=== PATIENT | female | born 1990 ===

== ENCOUNTER 2020-10-17 16:13 | Emergency (ER) | payer OTHER ==
[~2020-10-17] VITALS: Ht 160 cm; Wt 56.7 kg
[~2020-10-17 16:13] MED LIST: MOTRIN800 MG PO
[2020-10-17] MEDS ORDERED: TUSNEL LIQUID178 ML PO (18:31)
[2020-10-17] MEDS ORDERED: MEDROLPACK PO (18:31)
== END 2020-10-17 18:35 | disposition home or self-care (01) ==
LOC: ER 16:13
DX: R05 Cough (principal)